=== PATIENT | female | born 1985 | race African-American/Black ===

== ENCOUNTER 2018-07-31 19:40 | Emergency (ER) | payer SELFPAY ==
--- NOTE | 2018-07-31 20:15 | Emergency Department Report ---
Chief Complaint: Abdominal Pain Stated Complaint: ABD PAIN Time Seen by Provider: 07/31/18 20:11 - HPI History of Present Illness: pt presents with epigastric abdominal pain that began a week ago +nausea no V/D no fever never had before LNMP july 08 been taking miguelina selzter No PMHx no smoker no drinker no drug use - Exam Vital Signs: Vital Signs 07/31/18 19:48 Temperature 98.0 F Pulse Rate 71 Respiratory 18 Rate Blood Pressure 126/73 O2 Sat by Pulse 99 Oximetry MSE screening note: Focused history and physical exam performed. Due to findings the following was ordered: labs, UA, urine preg ED Disposition for MSE
[2018-07-31 20:57] LABS: Basophils % (Auto) 0.3 % (0.0-1.8); Eosinophils % (Auto) 0.5 % (0.0-4.3); Hematocrit 37.8 % (30.3-42.9); Lymphocytes # (Auto) 1.9 K/mm3 (1.2-5.4); Lymphocytes % (Auto) 25.5 % (13.4-35.0); Mean Corpuscular HGB Conc 34 % (30-34); Mean Corpuscular Volume 91 fl (79-97); Monocytes # (Auto) 0.4 K/mm3 (0.0-0.8); Monocytes % (Auto) 4.6 % (0.0-7.3); Platelet Count 315 K/mm3 (140-440); Red Blood Count 4.14 M/mm3 (3.65-5.03); Red Cell Distribution Width 14.2 % (13.2-15.2)
[2018-07-31 21:17] LABS: HCG Qualitative,Urine Positive (Negative)
[2018-07-31 21:19] LABS: Bilirubin,Urine NEG (Negative); Blood,Urine NEG (Negative); Color,Urine Yellow (Yellow); Mucus,Urine 1+ /HPF; Protein,Urine <15 mg/dL mg/dL (Negative); Urobilinogen,Urine < 2.0 mg/dL (<2.0)
[2018-07-31 21:23] LABS: Alanine Aminotransferase 11 units/L (7-56); BUN/Creatinine Ratio 18; Blood Urea Nitrogen 11 mg/dL (7-17); Calcium 9.4 mg/dL (8.4-10.2); Hemolysis Index 4
--- NOTE | 2018-07-31 21:25 | Emergency Department Report ---
ED Abdominal Pain HPI - General Chief Complaint: Abdominal Pain Stated Complaint: ABD PAIN Time Seen by Provider: 07/31/18 20:11 Source: patient, family Mode of arrival: Ambulatory Limitations: No Limitations - History of Present Illness Initial Comments: This is a 33-year-old female here with abdominal pain and feeling of nausea without any vomiting 1 week. Last menstrual period was 07/08/2018. Denies any vaginal bleeding or discharge. Denies any urinary burning frequency or urgency. Denies any back pain. Denies any diarrhea. Pain is 6/10 to lower abdomen achy and crampy. Pain is intermittent. No medication taken. Denies any fever or ch ills, shortness of breath or chest pain. MD Complaint: abdominal pain Onset/Timin -: week(s) Location: suprapubic Radiation: none Migration to: no migration Severity: moderate Severity scale (0 -10): 6 Quality: cramping, aching Consistency: intermittent Improves With: nothing Worsens With: nothing Context: other (unknown) Associated Symptoms: nausea. denies: vomiting, diarrhea, fever, chills, constipation, dysuria, hematemesis, hematochezia, melena, hematuria, anorexia, syncope - Related Data LMP Date: 07/08/18 Previous Rx's Medication Instructions Recorded Last Taken Type Ondansetron [Zofran Odt] 4 mg PO Q8HR PRN #12 tab.rapdis 08/01/18 Unknown Rx Vit No.130/Iron/Folic 1 each PO QDAY 30 Days #30 tablet 08/01/18 Unknown Rx [ Tablet] Allergies Allergy/AdvReac Type Severity Reaction Status Date / Time No Known Allergies Allergy Unverified 07/31/18 21:24 ED Review of Systems ROS: Stated complaint: ABD PAIN Other details as noted in HPI Constitutional: denies: chills, fever ENT: denies: throat pain, congestion Respiratory: denies: cough, shortness of breath, wheezing Cardiovascular: denies: chest pain, palpitations, dyspnea on exertion, edema, syncope Gastrointestinal: abdominal pain, nausea. denies: vomiting, diarrhea, const ipation, hematemesis, melena, hematochezia Genitourinary: denies: urgency, dysuria, frequency, hematuria, discharge, abnormal menses, dyspareunia Musculoskeletal: denies: back pain, joint swelling, arthralgia, myalgia Skin: denies: rash Neurological: denies: headache, paresthesias ED Past Medical Hx - Past Medical History Previous Medical History?: No - Surgical History Past Surgical History?: No - Family History Family history: no significant - Social History Smoking Status: Never Smoker Substance Use Type: None - Medications Home Medications: Home Medications Medication Instructions Recorded Confirmed Last Taken Type Ondansetron [Zofran Odt] 4 mg PO Q8HR PRN #12 tab.rapdis 08/01/18 Unknown Rx Vit No.130/Iron/Folic 1 each PO QDAY 30 Days #30 tablet 08/01/18 Unknown Rx [ Tablet] ED Physical Exam - General Limitations: No Limitations General appearance: alert, in no apparent distress - Head Head exam: Present: atraumatic, normocephalic - Eye Eye exam: Present: normal appearance, PERRL, EOMI Pupils: Present: normal accommodation - ENT ENT exam: Present: normal exam, normal orophraynx, mucous membranes moist, TM's normal bilaterally, normal external ear exam - Neck Neck exam: Present: normal inspection, full ROM. Absent: tenderness, lymphadenopathy - Respiratory Respiratory exam: Present: normal lung sounds bilaterally. Absent: respiratory distress, chest wall tenderness - Cardiovascular Cardiovascular Exam: Present: regular rate, normal rhythm, normal heart sounds - GI/Abdominal GI/Abdominal exam: Present: soft, tenderness (minimal suprapubic tenderness), normal bowel sounds. Absent: distended, guarding, rebound, rigid, organomegaly, mass, bruit, pulsatile mass - Extremities Exam Extremities exam: Present: normal inspection, full ROM, normal capillary refill, other. Absent: tenderness, pedal edema, joint swelling, calf tenderness - Back Exam Back exam: Present: normal inspection, full ROM, other ( ). Absent: tenderness, CVA tenderness (R), CVA tenderness (L), muscle spasm, paraspinal tenderness, vertebral tenderness, rash noted - Neurological Exam Neurological exam: Present: alert, oriented X3, normal gait - Psychiatric Psychiatric exam: Present: normal affect, normal mood - Skin Skin exam: Present: warm, dry, intact, normal color. Absent: rash ED Course Vital Signs 07/31/18 07/31/18 08/01/18 19:48 20:12 00:19 Temperature 98.0 F 98 F 98 F Pulse Rate 71 73 75 Respiratory 18 18 16 Rate Blood Pressure 126/73 126/73 Blood Pressure 126/73 109/73 [Left] O2 Sat by Pulse 99 99 100 Oximetry - Reevaluation(s) Reevaluation #1: 07/31/18 21:28 Patient with nausea and was ordered Zofran 4 g ODT, positive urine hCG with abdominal pain. Quantitative tests and ultrasound will be ordered Reevaluation #2: 08/01/18 00:05 Patient with positive ketones 80 and urine. She has dehydration and will start IV fluids 1 L and additional Zofran 4 mg IV as her nausea is not completely relieved. I discussed her ultrasound report with her. She denies fever she Reevaluation #3: 08/01/18 00:56 She received 1 L of normal saline and additional 4 mg IV of Zofran and she is feeling much better. Patient is currently not having any abdominal pain and her nausea is relieved ED Medical Decision Making - Lab Data Result diagrams: 07/31/18 20:39 07/31/18 20:39 Lab Results 07/31/18 07/31/18 07/31/18 Range/Units 20:39 20:39 20:47 WBC 7.6 (4.5-11.0) K/mm3 RBC 4.14 (3.65-5.03) M/mm3 Hgb 13.0 (10.1-14.3) gm/dl Hct 37.8 (30.3-42.9) % MCV 91 (79-97) fl MCH 31 (28-32) pg MCHC 34 (30-34) % RDW 14.2 (13.2-15.2) % Plt Count 315 (140-440) K/mm3 Lymph % (Auto) 25.5 (13.4-35.0) % [place] % (Auto) 4.6 (0.0-7.3) % Eos % (Auto) 0.5 (0.0-4.3) % Baso % (Auto) 0.3 (0.0-1.8) % Lymph # 1.9 (1.2-5.4) K/mm3 [place] # 0.4 (0.0-0.8) K/mm3 Eos # 0.0 (0.0-0.4) K/mm3 Baso # 0.0 (0.0-0.1) K/mm3 Seg Neutrophils % 69.1 (40.0-70.0) % Seg Neutrophils # 5.3 (1.8-7.7) K/mm3 Sodium 135 L (137-145) mmol/L Potassium 3.8 (3.6-5.0) mmol/L Chloride 98.6 (98-107) mmol/L Carbon Dioxide 21 L (22-30) mmol/L Anion Gap 19 mmol/L BUN 11 (7-17) mg/dL Creatinine 0.6 L (0.7-1.2) mg/dL Estimated GFR > 60 ml/min BUN/Creatinine Ratio 18 % Glucose 82 (65-100) mg/dL Calcium 9.4 (8.4-10.2) mg/dL Total Bilirubin 0.40 (0.1-1.2) mg/dL AST 14 (5-40) units/L ALT 11 (7-56) units/L Alkaline Phosphatase 43 (35-129) units/L Total Protein 7.3 (6.3-8.2) g/dL Albumin 4.0 (3.9-5) g/dL Albumin/Globulin Ratio 1.2 % Lipase 32 (13-60) units/L HCG, Quant (0-4) mIU/mL Urine Color Yellow (Yellow) Urine Turbidity Clear (Clear) Urine pH 5.0 (5.0-7.0) Ur Specific [place] 1.021 (1.003-1.030) Urine Protein <15 mg/dl (Negative) mg/dL Urine Glucose (UA) Neg (Negative) mg/dL Urine Ketones 80 (Negative) mg/dL Urine Blood Neg (Negative) Urine Nitrite Neg (Negative) Ur Reducing Substances Not Reportable Urine Bilirubin Neg (Negative) Urine Ictotest Not Reportable Urine Urobilinogen < 2.0 (<2.0) mg/dL Ur Leukocyte Esterase Sm (Negative) Urine WBC (Auto) 3.0 (0.0-6.0) /HPF Urine RBC (Auto) 2.0 (0.0-6.0) /HPF U Epithel Cells (Auto) 5.0 (0-13.0) /HPF Urine Mucus 1+ /HPF Urine HCG, Qual Positive A (Negative) 07/31/18 Range/Units 21:41 WBC (4.5-11.0) K/mm3 RBC (3.65-5.03) M/mm3 Hgb (10.1-14.3) gm/dl Hct (30.3-42.9) % MCV (79-97) fl MCH (28-32) pg MCHC (30-34) % RDW (13.2-15.2) % Plt Count (140-440) K/mm3 Lymph % (Auto) (13.4-35.0) % [place] % (Auto) (0.0-7.3) % Eos % (Auto) (0.0-4.3) % Baso % (Auto) (0.0-1.8) % Lymph # (1.2-5.4) K/mm3 [place] # (0.0-0.8) K/mm3 Eos # (0.0-0.4) K/mm3 Baso # (0.0-0.1) K/mm3 Seg Neutrophils % (40.0-70.0) % Seg Neutrophils # (1.8-7.7) K/mm3 Sodium (137-145) mmol/L Potassium (3.6-5.0) mmol/L Chloride (98-107) mmol/L Carbon Dioxide (22-30) mmol/L Anion Gap mmol/L BUN (7-17) mg/dL Creatinine (0.7-1.2) mg/dL Estimated GFR ml/min BUN/Creatinine Ratio % Glucose (65-100) mg/dL Calcium (8.4-10.2) mg/dL Total Bilirubin (0.1-1.2) mg/dL AST (5-40) units/L ALT (7-56) units/L Alkaline Phosphatase (35-129) units/L Total Protein (6.3-8.2) g/dL Albumin (3.9-5) g/dL Albumin/Globulin Ratio % Lipase (13-60) units/L HCG, Quant 78988 H (0-4) mIU/mL Urine Color (Yellow) Urine Turbidity (Clear) Urine pH (5.0-7.0) Ur Specific [place] (1.003-1.030) Urine Protein (Negative) mg/dL Urine Glucose (UA) (Negative) mg/dL Urine Ketones (Negative) mg/dL Urine Blood (Negative) Urine Nitrite (Negative) Ur Reducing Substances Urine Bilirubin (Negative) Urine Ictotest Urine Urobilinogen (<2.0) mg/dL Ur Leukocyte Esterase (Negative) Urine WBC (Auto) (0.0-6.0) /HPF Urine RBC (Auto) (0.0-6.0) /HPF U Epithel Cells (Auto) (0-13.0) /HPF Urine Mucus /HPF Urine HCG, Qual (Negative) Urine culture sent and pending - Radiology Data Radiology results: report reviewed Patient had OB transvaginal and transabdominal ultrasound which was dictated by radiologist's report reviewed by myself. Please see details below Findings [facility] [address] [place] [address] Ultrasound Report Signed Patient: CAROL GONZALEZ MR#: [id number] : 1985 Acct:[id number] Age/Sex: 33 / F ADM Date: 07/31/18 Loc: ED Attending Dr: Ordering Physician: EDWARD GATES Date of Service: 07/31/18 Procedure(s): US OB <= 14 weeks fetus Accession Number(s): [id number] cc: EDWARD GATSE PROCEDURE: US OB <= 14 WEEKS FETUS TECHNIQUE: Real-time transabdominal sonography of the uterus, placenta, amniotic fluid, adnexa, and fetus was performed with image documentation. Measurements were obtained to determine age/size. M-mode Doppler was used to document heartbeat. ADDITIONAL GESTATION: None. HISTORY: positive test with abdominal pain COMPARISONS: None . FINDINGS: CRL: 10 mm, which corresponds to a gestational age of: 7 weeks, 1 days. Yolk Sac: Appropriate for gestational age. . Embryonic Cardiac Activity: 145 bpm . Gestational Sac: Size and shape are appropriate for gestational age Placenta: Normal Amniotic fluid: Appropriate for gestational age. Cervix: Normal. Right Ovary: Normal . Left Ovary: There is a dominant 2 cm cyst on the left ovary . Estimated delivery date: 03/18/2019 . Uterus and adnexa: Normal. IMPRESSION: Single live intrauterine gestation at approximately 7 weeks 1 day . EDC by 03/18/2019 . This document is electronically signed by Vannesa Hubbard DO., Jul 31 2018 11:09:45 PM ET Transcribed By: [facility] Dictated By: VANNESA HUBBARD MD Electronically Authenticated By: VANNESA HUBBARD MD Signed Date/Time: 07/31/182310 DD/ 57 TD/TT: 07/31/182299 - Medical Decision Making This is a 33-year-old female here for nausea without vomiting in and abdominal pain 1 week. She is here to be evaluated. Ultrasound OB transvaginal and transabdominal dictated by radiologist and report reviewed by myself. Impression: Single live intrauterine gestation at approximately 7 weeks and 1 day. EDC by ultrasound 03/18/2019. Uterus and adnexa is normal. Left ovary with 2 cm ovarian cyst and right ovaries normal. Cervix is normal. Embryonic cardiac activity at 145 bpm. Appropriate yolk sac for gestational age. Labs: Urinalysis is stable except she has 80 ketones in her urine and small amount of leukocyte esterase. Urine culture sent. Positive tests and quantitative hCG correlates with ultrasound gestational age. CBC and CMP stable. Assessment/plan 1: Nausea and first trimester -Zofran and will discharge home and Zofran 2: Dehydration and -better after IV fluid. Tolerating poor fluid well 3: Abdominal pain and -referred to CERTIFIED LOW VISION THERAPIST. Pain is better 4: Left ovarian cyst-CERTIFIED LOW VISION THERAPIST follow-up Patient given 1 L of normal saline IV to correct dehydration, she was given Zofran 4 mg ODT and Zofran 4 mg IV. Nausea and abdominal pain is relieved and patient says she is feeling a lot better. She is aware that she needs to follow up with CERTIFIED LOW VISION THERAPIST to call tomorrow to schedule an appointment. I told her that she will need to increase her fluid intake to Aleve 1-2 L of water or Gatorade daily and she is to start taking vitamin. I discussed her lab results and ultrasound reports with her and her family and they voiced understanding. Patient vital signs stable she is afebrile and discharged home in stable condition without any nausea or pain with prescription for Zofran, vitamin - Differential Diagnosis ectopic , colitis, enteritis, UTI, Critical care attestation.: If time is entered above; I have spent that time in minutes in the direct care of this critically ill patient, excluding procedure time. ED Disposition Clinical Impression: Abdominal pain during intrauterine , Dehydration Disposition: DC-01 TO HOME OR SELFCARE Is pt being admited?: No Does the pt Need Aspirin: No Condition: Stable Instructions: Abdominal Pain (ED), Abdominal Pain in (ED), Dextrose/Fructose/Phosphoric Acid (By mouth), Acute Nausea and Vomiting (ED), Morning Sickness (ED), Dehydration (ED) Additional Instructions: Please follow up with CERTIFIED LOW VISION THERAPIST as discussed. See referral on discharge instru ction paperwork Take vitamin as prescribed and take Zofran for nausea If you have condition worsened and he developed vaginal bleeding and, increasing abdominal pain, worsening nausea and vomiting, fever and/or chills or urinary burning frequency or urgency. Return to the emergency room ADALBERTO Please see discharge instructions for details on diagnosis. Por favor kirk un seguimiento con OB / BAGEL [employer]ER kathryn se discuti Zachary la referencia en el documento de instrucciones de antonio [place] la vitamina segn lo prescrito y tome Zofran para las nuseas. Si tiene dre condicin empeorada y desarroll un sangrado vaginal y, aumentando el dolor abdominal, empeorando las nuseas y los vmitos, la fiebre y / o los escalofros o la frecuencia o la urgencia de la quemazn urinaria. Regrese a la larry de emergencias lo antes posible Por favor, consulte las instrucciones de antonio para obtener ms detalles sobre el diagnstico. Referrals: DAVE PICKERING MD [Staff Physician] - 08/02/18 [facility] MD FRANCES [Primary Care Provider] - 08/02/18 Forms: Work/School Release Form(ED) Print Language: KYRGYZ
[2018-07-31] MEDS ORDERED: ZOFRAN ODT PO ONE (21:26)
--- NOTE | 2018-07-31 23:11 | Ultrasound Report ---
PROCEDURE: US OB <= 14 WEEKS FETUS TECHNIQUE: Real-time transabdominal sonography of the uterus, placenta, amniotic fluid, adnexa, and fetus was performed with image documentation. Measurements were obtained to determine age/size. M-mode Doppler was used to document heartbeat. ADDITIONAL GESTATION: None. HISTORY: positive test with abdominal pain COMPARISONS: None . FINDINGS: CRL: 10 mm, which corresponds to a gestational age of: 7 weeks, 1 days. Yolk Sac: Appropriate for gestational age. . Embryonic Cardiac Activity: 145 bpm . Gestational Sac: Size and shape are appropriate for gestational age Placenta: Normal Amniotic fluid: Appropriate for gestational age. Cervix: Normal. Right Ovary: Normal . Left Ovary: There is a dominant 2 cm cyst on the left ovary . Estimated delivery date: 03/18/2019 . Uterus and adnexa: Normal. IMPRESSION: Single live intrauterine gestation at approximately 7 weeks 1 day . EDC by US 9 . This document is electronically signed by Vannesa Hubbard DO., Jul 31 2018 11:09:45 PM ET
[2018-08-01] MEDS ORDERED: ZOFRAN IV ONE (00:04)
[2018-08-01] MEDS ORDERED: NACL 0.9% 1000 ML 1,000 ML IV ONE (00:04)
[2018-08-01 00:21] VITALS: BP 109/73
== END 2018-08-01 03:14 | disposition home or self-care (01) ==
LOC: ED 19:40
DX: O26.891 Other specified pregnancy related conditions, first trimester (principal); E86.0 Dehydration; Z3A.01 Less than 8 weeks gestation of pregnancy
CPT/HCPCS: 36415; 76801; 80053; 81001; 81025; 83690; 84702; 85025; 96361; 96374; 99284; J2405; J7030; Q0162

== ENCOUNTER 2019-03-13 09:08 | Inpatient (IN) | payer OTHER ==
[2019-03-13] MEDS ORDERED: DEXMEDETOMIDINE 200 MCG/2 ML VIAL IV ONE (10:42)
[2019-03-13 11:29] LABS: Bacteria,Urine 1+ /HPF (Negative); Bilirubin,Urine NEG (Negative); Blood,Urine SM (Negative); Color,Urine Yellow (Yellow); Mucus,Urine FEW /HPF
[2019-03-13] MEDS ORDERED: NITRAZINE (URINE TESTING PAPER) MC ONE (12:00)
[2019-03-13] MEDS ORDERED: LIDOCAINE (2%) 20 MG/1 ML VIAL 20 ML MDV INFILTRATI ONE (12:22)
[2019-03-13] MEDS ORDERED: TERBUTALINE 1 MG/1 ML INJ IVP PRN (12:22)
[2019-03-13] MEDS ORDERED: TERBUTALINE 1 MG/1 ML INJ SUB-Q PRN (12:22)
[2019-03-13] MEDS ORDERED: MINERAL OIL 30 ML ORAL LIQD PO PRN (12:22)
[2019-03-13] MEDS ORDERED: ePHEDrine SULFATE 50 MG/1 ML INJ IV PRN (12:22)
[2019-03-13] MEDS ORDERED: OXYTOCIN DRIP 30 UNITS/500 ML BAG IV SCH ×3 (13:00→14:00)
[2019-03-13] MEDS: LACTATED RINGERS 1,000 ML IV SCH ×3 (13:20→23:13)
[2019-03-13] MEDS ORDERED: BUTORPHANOL 2 MG/1 ML INJ IV PRN (13:43)
[2019-03-13] MEDS ORDERED: fentaNYL 100 MCG/2 ML INJ IV PRN (13:43)
--- NOTE | 2019-03-13 13:56 | History and Physical Report ---
History of Present Illness Date of examination: 03/13/19 Date of admission: 03/13/19 Chief complaint: Leaking fluid History of present illness: 33yo G 3 P 2 0 0 2 @ 39 weeks 0 day here with c/o leaking fluid since 7am. She reports +FMs but denies UCs or VB. She is a [facility] patient who initiated care at 10 weeks gestation. records are available and reviewed. Her course was complicated by anemia (on iron therapy). LABS: O+, Antibody Screen neg, Pap Smear neg, RI, RPR neg, HBsAg neg, HIV neg, MSZFP neg, Diabetes Screen 94, GC/CT neg, GBS neg. Past History Past Medical History: no pertinent history Past Surgical History: no surgical history Family/Genetic History: none Social history: , lives with family, full code. denies: smoking, alcohol abuse, prescription drug abuse, IV drug use - Obstetrical History Expected Date of Delivery: 03/20/19 Actual Gestation: 39 Week(s) 0 Day(s) : 3 Para: 2 Hx # Term Pregnancies: 2 Number of Pregnancies: 0 Spontaneous Abortions: 0 Induced : 0 Number of Living Children: 2 Medications and Allergies Allergies Allergy/AdvReac Type Severity Reaction Status Date / Time No Known Allergies Allergy Unverified 07/31/18 21:24 Home Medications Medication Instructions Recorded Confirmed Last Taken Type Ondansetron [Zofran Odt] 4 mg PO Q8HR PRN #12 tab.rapdis 08/01/18 Unknown Rx Vit No.130/Iron/Folic 1 each PO QDAY 30 Days #30 tablet 08/01/18 Unknown Rx [ Tablet] Active Meds: Active Medications Ephedrine Sulfate (Ephedrine Sulfate) 10 mg IV Q2M PRN PRN Reason: Hypotension Oxytocin/Sodium Chloride (Pitocin/Ns 20 Unit/1000ml Drip) 20 units in 1,000 mls @ 125 mls/hr IV DIRECT GAYATHRI Oxytocin/Sodium Chloride (Pitocin/Ns 30 Unit/500ml) 30 units in 500 mls @ 1 mls/hr IV TITR GAYATHRI; Protocol Oxytocin/Sodium Chloride (Pitocin/Ns 30 Unit/500ml) 30 units in 500 mls @ 0 mls/hr IV TITR GAYATHRI; Protocol Lactated Ringer's (Lactated Ringers) 1,000 mls @ 125 mls/hr IV DIRECT GAYATHRI Mineral Oil (Mineral Oil) 30 ml PO QHS PRN PRN Reason: Constipation Terbutaline Sulfate (Brethine) 0.25 mg SUB-Q ONCE PRN PRN Reason: Hyperstimulation/Hypertonicity Terbutaline Sulfate (Brethine) 0.25 mg IVP ONCE PRN PRN Reason: Hyperstimulation/Hypertonicity Review of Systems All systems: negative - Vital Signs Vital signs: Vital Signs Pulse Ox 100 03/13/19 09:51 Temp Pulse Resp BP Pulse Ox 98.5 F 115 H 20 114/64 98 03/13/19 11:56 03/13/19 10:51 03/13/19 11:56 03/13/19 09:52 03/13/19 10:51 - Physical Exam Abdomen: Positive: normal appearance, soft - Obstetrical FHR: auscultation normal, category 1 FHR comments: baseline 140, moderate variability, 15x15 accels, no decels Uterine Contraction Monitor Mode: External Cervical Dilatation: 1 (per RN) Cervical Effacement Percentage: 40 (per RN) station: -4 (per RN) Uterine Contraction Frequency (min): 3-5 Uterine Contraction Pattern: Regular Results All other labs normal. Assessment and Plan - Patient Problems (1) 39 weeks gestation of Current Visit: Yes Status: Acute (2) SROM (spontaneous rupture of membranes) Current Visit: Yes Status: Acute Plan to address problem: Admit to L&D with routine labor orders Start oxytocin for labor augmentation Anticipate vaginal delivery
[2019-03-13 22:23] LABS: Hematocrit 37.4 % (30.3-42.9); Mean Corpuscular HGB Conc 35 % (30-34); Mean Corpuscular Volume 91 fl (79-97); Platelet Count 259 K/mm3 (140-440); Red Cell Distribution Width 18.7 % (13.2-15.2)
--- NOTE | 2019-03-13 22:52 | Event Note ---
Date: 03/06/19 S: Pt in left lateral position with family members at bedside. Pain level 10/10. Requesting epidural anesthesia. O: FHR 130, moderate variability, +accels, early decels Ctxs q2-4mins, palpate moderate Pitocin @ 10 mu/min SVE 6/80/-2 A: IUP @ 39w0d SROM Active Labor P: Continue current management Anticipate vaginal delivery
[2019-03-13 22:56] LABS: Basophils % (Manual) 0 % (0.0-1.8); Eosinophils % (Manual) 0 % (0.0-4.3); Monocytes % (Manual) 2 % (0.0-7.3); Total Cells Counted 100
[2019-03-13 22:57] LABS: Anisocytosis 1+
[2019-03-14] MEDS ORDERED: ePHEDrine SULFATE 50 MG/1 ML INJ IV PRN (00:22)
[2019-03-14] MEDS ORDERED: NALOXONE 2 MG/2 ML INJ IV PRN (00:22)
--- NOTE | 2019-03-14 00:25 | Anesthesia Consultation ---
Anesthesia Consult and Med Hx Date of service: 03/14/19 - Airway Anesthetic Teeth Evaluation: Poor ROM Head & Neck: Adequate Mental/Hyoid Distance: Adequate Mallampati Class: Class III Intubation Access Assessment: Probably Good - Pulmonary Exam CTA: Yes - Cardiac Exam Cardiac Exam: RRR - Pre-Operative Health Status ASA Pre-Surgery Classification: ASA2 Proposed Anesthetic Plan: Epidural - Pulmonary Hx Smoking: No Hx Asthma: No Hx Respiratory Symptoms: No SOB: No COPD: No Home Oxygen Therapy: No Hx Pneumonia: No Hx Sleep Apnea: No - Cardiovascular System Hx Hypertension: No Hx Coronary Artery Disease: No Hx Heart Attack/AMI: No Hx Angina: No Hx Percutaneous Transluminal Coronary Angioplasty (PTCA): No Hx Cardia Arrhythmia: No Hx Pacemaker: No Hx Internal Defibrillator: No Hx Valvular Heart Disease: No Hx Heart Murmur: No Hx Peripheral Vascular Disease: No - Central Nervous System Hx Neuromuscular Disorder: No Hx Seizures: No CVA: No Hx Back Pain: No Hx Psychiatric Problems: No - Gastrointestinal Hx Ulcer: No Hx Gastroesophageal Reflux Disease: Yes - Endocrine Hx Renal Disease: No Hx End Stage Renal Disease: No Hx Cirrhosis: No Hx Liver Disease: No Hx Insulin Dependent Diabetes: No Hx Hypothyroidism: No Hx Hyperthyroidism: No - Hematic Hx Anemia: Yes Hx Sickle Cell Disease: No - Other Systems Hx Alcohol Use: No Hx Substance Use: No Hx Cancer: No Hx Obesity: Yes
[2019-03-14] MEDS ORDERED: fentaNYL-BUPIV 2 MCG/ML-0.125% 200 MCG/100 ML BAG EPIDURAL SCH (01:00)
--- NOTE | 2019-03-14 01:39 | Procedure Note ---
OB Delivery Note - Delivery Date of Delivery: 03/14/19 (01:16) Surgeon: CHRISTIANE MARIN (DWAYNE) Estimated blood loss: 200cc - Vaginal Delivery presentation: vertex Delivery position: OA Intrapartum events: none Delivery induction: none Delivery augmentation: pitocin Delivery monitor: external FHT, external uterine Route of delivery: (01:16) Delivery placenta: spontaneous (01:22) Delivery cord: nuchal cord (x1; reduced after delivery) Episiotomy: none Delivery laceration: none Anesthesia: epidural Delivery comments: of a vigorous term 6 lbs 10 oz male on 03/14/19 @ 01:16. Baby placed [id number] on maternal abdomen, dried and bulb-suctioned. After 3 mins, umbilical cord double-clamped by Nora RICE and cut by FOB. Cord blood collected. Spontaneous delivery of placenta, [place] presenting @ 01:22. Small lochia noted. Fundal massage and IV pitocin bolus initiated. Fundus F/ML/U. Placenta intact; was discarded. Perineum intact. Mom and baby in stable condition. - A at 1 minute: 8 at 5 minutes: 9 Gender: Male (6 lbs 10 oz (3012 gm); 19 in)
[2019-03-14] MEDS ORDERED: diphenhydrAMINE 25 MG CAP PO PRN (01:41)
[2019-03-14] MEDS ORDERED: MAGNESIUM HYDROXIDE (MOM) ORAL LIQD UDC PO PRN (01:41)
[2019-03-14] MEDS ORDERED: LANOLIN/ZINC/DIMETHICONE (LANSINOH) 7 GM TP PRN (01:41)
[2019-03-14] MEDS ORDERED: WITCH HAZEL/ GLYCERIN PAD TP PRN (01:41)
[2019-03-14] MEDS ORDERED: PROMETHAZINE 25 MG RECT SUPP PR PRN (01:41)
[2019-03-14] MEDS ORDERED: ONDANSETRON 4 MG/2 ML INJ IV PRN (01:41)
[2019-03-14] MEDS ORDERED: PROMETHAZINE 25 MG TAB PO PRN (01:41)
[2019-03-14] MEDS ORDERED: ACETAMINOPHEN 325 MG TAB PO PRN (01:41)
[2019-03-14] MEDS: OXYTOCIN 20 UNIT/1000ML DRIP 20 UNITS/1,000 ML BAG IV SCH ×2 (03:23→03:24)
[2019-03-14] MEDS ORDERED: TETANUS,DIPH,PERTUSS(ACELL) VACCINE 0.5 ML SYRINGE IM ONE (06:00)
[2019-03-14] MEDS: IBUPROFEN 600 MG TAB PO SCH ×3 (06:16→18:45)
[2019-03-14] MEDS: PRENATAL VIT27-FE FUMARATE-FOLIC ACID VIT TAB PO SCH (10:28)
[2019-03-14] MEDS: HYDROcodone/ACETAMINOPHEN 5-325 MG TAB PO PRN (10:28)
[2019-03-14] MEDS: FERROUS SULFATE 325 MG TAB PO SCH (10:29)
[2019-03-14 14:51] LABS: Hematocrit 33.5 % (30.3-42.9); Hemoglobin 11.2 gm/dl (10.1-14.3); Mean Corpuscular HGB Conc 33 % (30-34); Mean Corpuscular Volume 92 fl (79-97); Platelet Count 242 K/mm3 (140-440); Red Blood Count 3.64 M/mm3 (3.65-5.03); Red Cell Distribution Width 19.7 % (13.2-15.2)
[2019-03-15] MEDS: IBUPROFEN 600 MG TAB PO SCH ×4 (00:11→18:17)
[2019-03-15] MEDS: HYDROcodone/ACETAMINOPHEN 5-325 MG TAB PO PRN (09:56)
[2019-03-15] MEDS: PRENATAL VIT27-FE FUMARATE-FOLIC ACID VIT TAB PO SCH (09:56)
[2019-03-15] MEDS: FERROUS SULFATE 325 MG TAB PO SCH (09:56)
--- NOTE | 2019-03-15 14:59 | Discharge Summary ---
Providers - Providers Date of Admission: 03/13/19 09:09 Date of discharge: 03/15/19 Attending physician: BRIAN GARBER MD Primary care physician: BRIAN GARBER MD Hospitalization Reason for admission: active labor, IUP at term Delivery: Episiotomy: none Laceration: none Other procedures: none complications: none Discharge diagnosis: other (S/P ) baby: male Hospital course: See admission H & P; OB delivery summary and PP progress notes Condition at discharge: Good Disposition: DC-01 TO HOME OR SELFCARE Plan - Provider Discharge Summary Activity: routine, no heavy lifting 4 weeks, no strenuous exercise Diet: routine Instructions: routine Additional instructions: [] Smoking cessation referral if applicable(refer to patient education folder for contact #) [] Refer to [facility]'s [facility] Booklet Call your doctor immediately for: * Fever > 100.5 * Heavy vaginal bleeding ( >1 pad per hour) * Severe persistent headache * Shortness of breath * Reddened, hot, painful area to leg or breast - Follow up plan Follow up: BRIAN GARBER MD [Primary Care Provider] - 6 Weeks
[2019-03-16] MEDS: IBUPROFEN 600 MG TAB PO SCH ×3 (00:07→11:39)
[2019-03-16] MEDS: FERROUS SULFATE 325 MG TAB PO SCH (11:38)
[2019-03-16] MEDS: PRENATAL VIT27-FE FUMARATE-FOLIC ACID VIT TAB PO SCH (11:39)
[2019-03-16 16:28] VITALS: BP 107/71
== END 2019-03-16 16:20 | disposition home or self-care (01) | DRG 807 ==
LOC: TRG 09:08 → LD 09:08 → TRG 09:09 → LD 09:09 → TRG 09:10 → OB 03-14 04:56
PROVIDERS: ADMIT Obstetrics & Gynecology; ATTEND Obstetrics & Gynecology
PROC: 10E0XZZ Delivery of Products of Conception, External Approach (ICD-10-PCS; principal; 2019-03-14)
PROC: 3E0R3BZ Introduction of Anesthetic Agent into Spinal Canal, Percutaneous Approach (ICD-10-PCS; 2019-03-14)
PROC: 00HU33Z Insertion of Infusion Device into Spinal Canal, Percutaneous Approach (ICD-10-PCS; 2019-03-14)
PROC: 3E0234Z Introduction of Serum, Toxoid and Vaccine into Muscle, Percutaneous Approach (ICD-10-PCS; 2019-03-14)
DX: O76 Abnormality in fetal heart rate and rhythm complicating labor and delivery (principal); Z37.0 Single live birth; O69.81X0 Labor and delivery complicated by cord around neck, without compression, not applicable or unspecified; O99.62 Diseases of the digestive system complicating childbirth; O99.214 Obesity complicating childbirth; E66.9 Obesity, unspecified; K21.9 Gastro-esophageal reflux disease without esophagitis; Z23 Encounter for immunization; Z3A.39 39 weeks gestation of pregnancy
CPT/HCPCS: 36415; 59025; 81001; 85007; 85025; 85027; 86850; 86900; 86901; 90715; G0378; J0595; J2590; J3490; J7120